=== PATIENT | male | born 1965 | race Hispanic/Latino ===

== ENCOUNTER 2017-05-16 06:37 | Inpatient (IN) | payer MEDICAID, OTHER ==
[2017-05-16 06:37] VITALS: BMI 22.9
--- NOTE | 2017-05-16 06:51 | C.PDOC ---
History Of Present Illness Pt was transferred here from [facility] for psychiatric admission. Pt was medically cleared at the referring facility. Time Seen by Provider: 05/16/17 06:40 Chief Complaint (Nursing): Psychiatric Evaluation History Per: Patient, EMS, Other (Transfer papers) Onset/Duration Of Symptoms: Days Current Symptoms Are (Timing): Still Present Modifying Factor(s): Alcohol Severity: Moderate Associated Symptoms: Depression Additional History Per: Prior Records Past Medical History Reviewed: Historical Data, Nursing Documentation, Vital Signs Vital Signs: Last Vital Signs Temp 98.6 F 05/16/17 06:41 Pulse 85 05/16/17 06:41 Resp 20 05/16/17 06:41 BP 147/87 05/16/17 06:41 Pulse Ox 95 05/16/17 06:41 - Medical History PMH: Anemia, Anxiety, Arthritis, Asthma, Bipolar Disorder, Bronchitis, COPD, Depression, Emphysema, Fractures, Gastritis, Gastrointestinal Ulcer, Hypercholesterolemia, Hyperlipidemia, Pancreatitis, Pneumonia, Pneumothorax, Schizophrenia Other PMH: Alcohol abuse Surgical History: Endoscopy - [facility] Procedures ALCOHOL DETOXIFICATION (10/24/14) APPLICATION OF SPLINT (12/03/06) CLOSURE SKIN & SUBCUTANEOUS NEC (03/08/14) DETOXIFICATION SERVICES FOR SUBSTANCE ABUSE TREATMENT (11/26/15) DRAINAGE OF LEFT KNEE JOINT, PERCUTANEOUS APPROACH (11/13/16) ESOPHAGOGASTRODUODENOSCOPY [EGD] W/CLOSED BIOPSY (08/25/14) EXCISION OF ESOPHAGUS, ENDO, DIAGN (08/01/15) GROUP PSYCHOTHERAPY (11/26/15) IMMOBILIZ/WOUND ATTN NEC (01/03/13) INDIVIDUAL PSYCHOTHERAPY, SUPPORTIVE (11/26/15) INJECT/INFUSE ELECTROLYT (09/21/13) INJECT/INFUSE NEC (08/25/14) INSERT INFUSION DEV IN R INT JUGULAR VEIN, PERC (03/21/17) INSPECTION OF UPPER INTESTINAL TRACT, ENDO (03/21/17) INTRODUCE LOCAL ANESTH IN PERIPH NRV, PLEXI, PERC (06/13/16) INTRODUCTION OF ANTI-INFLAMMATORY INTO JOINTS, PERC APPROACH (11/13/16) INTRODUCTION OF LOCAL ANESTHETIC INTO JOINTS, PERC APPROACH (11/13/16) MEDICATION MANAGEMENT (05/26/16) NEBULIZER THERAPY (03/21/14) OTHER CAST APPLICATION (11/08/99) OTHER ENDOSCOPY OF SM INTEST (08/25/14) OTHER ESOPHAGOSCOPY (04/17/03) PHARYNGOSCOPY (04/17/03) PSYCHIA INTERV/EVAL NEC (11/07/14) PSYCHIAT DRUG THERAP NEC (04/30/14) REMOV INTRALUM ESOPH FB (08/25/14) REPAIR LOWER LIP, EXTERNAL APPROACH (11/13/16) REPOSITION LEFT TIBIA WITH INT FIX, OPEN APPROACH (11/13/16) REPOSITION RIGHT TIBIA WITH INT FIX, PERC APPROACH (06/13/16) TETANUS TOXOID ADMINIST (12/02/03) ULTRASONOGRAPHY OF RIGHT JUGULAR VEINS, GUIDANCE (03/21/17) VENOUS PUNCTURE NEC (03/26/14) Family History: States: Unknown Family Hx - Social History Hx Tobacco Use: Yes Hx Alcohol Use: Yes Hx Substance Use: Yes - Immunization History Hx Tetanus Toxoid Vaccination: No Hx Influenza Vaccination: No Hx Pneumococcal Vaccination: No Review Of Systems Constitutional: Negative for: Fever Cardiovascular: Negative for: Chest Pain Respiratory: Negative for: Shortness of Breath Genitourinary: Negative for: Dysuria Musculoskeletal: Negative for: Neck Pain Neurological: Negative for: Weakness, Seizures Physical Exam - Physical Exam Appears: No Acute Distress Skin: Normal Color, Warm, Dry Head: Atraumatic Eye(s): bilateral: PERRL Neck: Normal ROM, Supple Cardiovascular: Rhythm Regular Respiratory: Normal Breath Sounds, No Accessory Muscle Use Gastrointestinal/Abdominal: Soft, No Tenderness Extremity: Normal ROM Neurological/Psych: Oriented x3, Normal Motor, Other (Pt is mildly tremulous.) ED Course And Treatment O2 Sat by Pulse Oximetry: 95 Pulse Ox Interpretation: Normal Disposition - Disposition Disposition: HOSPITALIZED Disposition Time: 06:52 Condition: STABLE - Clinical Impression Clinical Impression: Alcohol abuse, Depression Decision To Admit - Pt Status Changed To: Hospital Disposition Of: Inpatient - Admit Certification Admit to Inpatient:: After my assessment, the patient will require hospitalization for at least two midnights. This is because of the severity of symptoms shown, intensity of services needed, and/or the medical risk in this patient being treated as an outpatient. - InPatient: Physician Admission Certification: I certify that this patient requires 2 or more midnights of care for the following reason:: Psych. - . Bed Request Type: Psychiatry Admitting Physician: Viji Echavarria Patient Diagnosis: Alcohol abuse, Depression
--- NOTE | 2017-05-16 08:02 | PCM.BM ---
<Queenie Gomez - Last Filed: 05/16/17 07:59> Treatment Plan Problems - Problems identified on initial assessmt Depression Date Initiated: 05/16/17 Time Initiated: 08:02 Assessment reference: NA Status: Active Alcohool Abuse Date Initiated: 05/16/17 Time Initiated: 08:02 Assessment reference: NA Status: Active Treatment assets and liabiliti Patient Assests: cooperative, motivated, ADL independent, negotiates basic needs , good interpersonal skills Patient Liabilities: live alone (homeless), financial problems, substance abuse , medical problems (Hx of pancreatitis, liver, orthopic ,) - Milieu Protocol Maintain good personal hygiene: daily Encourage regular showers, daily Remind patient to perform daily oral care, daily Assist patient to perform ADL's (self) Conduct patient checks and document Observation sheet: Q15 minutes (safety) Maintain personal safety: every shift Educate patient to report safety concerns to staff, every shift Monitor environment for contraband/sharps Medication safety: Monitor for expected outcome, potential side effects: every shift, Assess barriers to learning: every shift, Assess readiness for medication education: every shift <Emmett Kat - Last Filed: 05/17/17 21:25> - Diagnosis (1) Depression Status: Acute Interventions: 05/17/17 21:25 * Assess/adjust medications daily and /or as needed * See patient on an individual basis 7x/week to assess symptoms of depression * Monitor for side effects & effectiveness of medications * (2) Alcohol abuse Status: Acute Interventions: 05/17/17 21:26 * Assess 7x/week regarding severity of withdrawal * Educate regarding risks, benefits, side effects and alternatives of medications * Use Motivational Interviewing for abstinence * Use CBT for relapse prevention * Medication management for withdrawal symptoms * Encourage medication assisted treatment * <Starla Parker - Last Filed: 05/23/17 08:17> Family Contact Family involvement: Famliy/SO not involved Discharge/Continuing Care - Education Needs Education Needs: Patient Medication, Patient Coping Skills - Discharge Discharge Criteria: Tolerates medication w/o severe side effects, No longer exhibiting s/s of withdrawal Discharge to:: Home - Treatment Team Participation Discussed with Family/SO: No Was Patient/Family/SO present at Treatment Team Meeting: Yes
[2017-05-16] MEDS: Multiple Vitamins Tab PO SCH (10:22)
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
[2017-05-17] MEDS: Multiple Vitamins Tab PO SCH (10:08)
--- NOTE | 2017-05-17 10:52 | PCM.PYCHPN ---
Psychiatric Progress Note - Psychiatric Progress Note Patient seen today, length of contact: 15 min Patient Chief Complaint: "I'm feeling shitty" Problems Identified/Issues Discussed: Patient was seen and examined at bedside, chart was reviewed and discussed with staff. The patient reports that he is still not feeling well and experiencing withdrawal symptoms. He reports that he is still shaking and gets chills. The patient reports eating and sleeping well. He reports that his knee pain is slightly better with Motrin but that he may need something stronger. The patient reports that he is becoming increasingly anxious about being here and my surgery at the end of the week. The patient reports that he wants Ativan for his anxiety. The patient reports that his depression is still the same, he feels depressed but has no suicidal ideations at this time because he feels like he is getting help in the hospital. Patient is laying down in bed and appears disheveled and malnourished. He makes good eye contact during the encounter, he responds to questions appropriately and clearly. His thoughts are linear in nature and has no difficulty maintaining concentration and focus. His mood is depressed with a broad and anxious affect. Medication Change: Yes Medical Record Reviewed: Yes Mental Status Examination - Cognitive Function Orientation: Person, Place, Situation, Time Memory: Intact Attention: WNL Concentration: WNL Association: WNL Fund of Knowledge: WNL - Mood Mood: Depressed, Anxious - Affect Affect: Constricted, Depressed - Speech Speech: Appropriate - Language Language: Word Retrieval - Formal Thought Process Formal Thought Process: No Impairment - Suicidal Ideation Suicidal Ideation: No - Homicidal Ideation Homicidal Ideation: No Goal/Treatment Plan - Goal/Treatment Plan Need for Continued Stay: Discharge may exacerbated symptoms, Severe functional impairment Progress Toward Problem(s) and Goals/Treatment Plan: Major Depressive disorder recurrent severe without psychotic features Alcohol Use Disorder severe Alcohol Withdrawal -Alcohol detox with Librium -Atarax for anxiety -Vitamins for nutrition -Trazodone -Celexa -Trazadone for sleep -As needed medications -All risks, benefits and alternatives of the meds discussed, and the pt agreed and understood. -Attend groups and activities -Individual therapy dailt -Supportive therapy and psychoeducation -NE for abstinence -CBT for relapse prevention -Encourage MAT -Refer to rehab or IOP, and self-help groups -Teach healthy lifestyle methods, i.e. diet, exercise, meditation - Smoking Cessation Smoking Cessation Initiated: No Reason for not providing: patient denies smoking
[2017-05-18 05:54] VITALS: O2SAT 97
[2017-05-18] MEDS: Multiple Vitamins Tab PO SCH (09:32)
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
[2017-05-19] MEDS: Multiple Vitamins Tab PO SCH (09:38)
[2017-05-19] MEDS ORDERED: Pneumococcal 23-Valent Vaccine IM ONE (10:00)
--- NOTE | 2017-05-19 12:24 | PCM.PYCHPN ---
Psychiatric Progress Note - Psychiatric Progress Note Patient seen today, length of contact: 15 min Patient Chief Complaint: "I'm getting better" Problems Identified/Issues Discussed: Patient was seen and examined at bedside, chart was reviewed and discussed with staff. The patient reports that he is doing much better. He reports that his mood "is getting there." He reports that he is currently trying to contact his orthopedic surgeon to schedule and appointment for his knee surgery. He reports that after the surgery he will most likely bee in a retirement for rehab for 4 -6 months. The patient appears brighter, he is socializing with patients, he is bathing regularly and appears well groomed. He is up and out of his room. The patient makes good eye contact during the encounter, he responds to questions appropriately and conversationally. His thoughts are linear in nature and has no difficulty maintaining concentration and focus. His mood "better" and he has a broad and neutral affect. Patient is compliant with medications and denies any side effects. Symptoms are improving but need more time to stabilize. Support and psychoeducation given. Medication Change: Yes Medical Record Reviewed: Yes Mental Status Examination - Cognitive Function Orientation: Person, Place, Situation, Time Memory: Intact Attention: WNL Concentration: WNL Association: WNL Fund of Knowledge: WNL - Mood Mood: Neutral - Affect Affect: Broad - Speech Speech: Appropriate - Language Language: Word Retrieval - Formal Thought Process Formal Thought Process: No Impairment - Suicidal Ideation Suicidal Ideation: No - Homicidal Ideation Homicidal Ideation: No Goal/Treatment Plan - Goal/Treatment Plan Need for Continued Stay: Discharge may exacerbated symptoms, Severe functional impairment Progress Toward Problem(s) and Goals/Treatment Plan: Major Depressive disorder recurrent severe without psychotic features Alcohol Use Disorder severe Alcohol Withdrawal -Alcohol detox with Librium -Atarax for anxiety -Vitamins for nutrition -Trazodone -Celexa -Trazadone for sleep -As needed medications -All risks, benefits and alternatives of the meds discussed, and the pt agreed and understood. -Attend groups and activities -Individual therapy dailt -Supportive therapy and psychoeducation -MN for abstinence -CBT for relapse prevention -Encourage MAT -Refer to rehab or IOP, and self-help groups -Teach healthy lifestyle methods, i.e. diet, exercise, meditation Estimated Date of D/C: 05/23/17
[2017-05-20] MEDS: Multiple Vitamins Tab PO SCH (09:29)
--- NOTE | 2017-05-20 17:00 | PCM.PYCHPN ---
Psychiatric Progress Note - Psychiatric Progress Note Patient seen today, length of contact: 15 min Patient Chief Complaint: "I'm getting better" Problems Identified/Issues Discussed: Patient was seen and examined at bedside, chart was reviewed and discussed with staff. As per the staff, he is doing much better. He reports some improvement in his mood, but still reports depressed mood and withdrawal symptoms, including shakes, and anxiety. He is looking forward for his appointment for his knee surgery. The patient appears brighter, he is socializing with patients, he is bathing regularly and appears well groomed. He is up and out of his room. The patient makes good eye contact during the encounter, he responds to questions appropriately and conversationally. His thoughts are linear in nature and has no difficulty maintaining concentration and focus. His mood "better" and he has a broad and neutral affect. Patient is compliant with medications and denies any side effects. Symptoms are improving but need more time to stabilize. Support and psychoeducation given. Medication Change: Yes (Increase neurontin, increase celexa, start seroquel) Medical Record Reviewed: Yes Mental Status Examination - Cognitive Function Orientation: Person, Place, Situation, Time Memory: Intact Attention: WNL Concentration: WNL Association: WNL Fund of Knowledge: Poor - Mood Mood: Depressed, Anxious - Affect Affect: Constricted, Depressed - Speech Speech: Appropriate - Language Language: Word Retrieval - Formal Thought Process Formal Thought Process: No Impairment - Suicidal Ideation Suicidal Ideation: No - Homicidal Ideation Homicidal Ideation: No Goal/Treatment Plan - Goal/Treatment Plan Need for Continued Stay: Discharge may exacerbated symptoms, Severe functional impairment Progress Toward Problem(s) and Goals/Treatment Plan: Major Depressive disorder recurrent severe without psychotic features Alcohol Use Disorder severe Alcohol Withdrawal -Alcohol detox with Librium -Atarax for anxiety -Vitamins for nutrition - Neurontin 300 mg PO TID -Increase Celexa 40 mg -Trazadone 100 mg -Seroquel 100 mg PO QHS -As needed medications -All risks, benefits and alternatives of the meds discussed, and the pt agreed and understood. -Attend groups and activities -Individual therapy dailt -Supportive therapy and psychoeducation -UT for abstinence -CBT for relapse prevention -Encourage MAT -Refer to rehab or IOP, and self-help groups -Teach healthy lifestyle methods, i.e. diet, exercise, meditation Estimated Date of D/C: 05/23/17 - Smoking Cessation Smoking Cessation Initiated: No
[2017-05-21] MEDS: Multiple Vitamins Tab PO SCH (09:14)
--- NOTE | 2017-05-21 18:35 | PCM.PYCHPN ---
Psychiatric Progress Note - Psychiatric Progress Note Patient seen today, length of contact: 15 min Patient Chief Complaint: I'm feeling better. Daniel stay here until and can I get a wheelchair. Problems Identified/Issues Discussed: Patient seen, chart reviewed, case discussed with the staff. Issues related to illness and treatment were discussed with the patient. Reported compliant with treatment with no adverse affects. Tolerating treatment very well. Patient reported feeling better with the treatment. Asking if he can stay here until . Patient was also asking for a wheelchair due to his right knee pain. At the time of evaluation, patient was awake alert oriented 3, had no delusions , no auditory or visual hallucinations, no suicidal ideations or homicidal ideations. Aftercare discussed with the patient. Medical Problems: COPD Diagnostic Results: Reviewed DSM 5 Symptoms Update: Improvement with treatment Medication Change: No Medical Record Reviewed: Yes Mental Status Examination - Cognitive Function Orientation: Person, Place, Situation, Time Memory: Intact Attention: WNL Concentration: WNL Association: WN Fund of Knowledge: [facility] Decription of patient's judgement and insights: Fair - Mood Mood: Anxious (Less than before) - Affect Affect: Other (Appropriate) - Speech Speech: Appropriate - Formal Thought Process Formal Thought Process: No Impairment Psychotic Thoughts and Behaviors: None - Suicidal Ideation Suicidal Ideation: No - Homicidal Ideation Homicidal Ideation: No Goal/Treatment Plan - Goal/Treatment Plan Need for Continued Stay: Remain at risks for inpatient hospitalization, Discharge may exacerbated symptoms, Severe functional impairment Progress Toward Problem(s) and Goals/Treatment Plan: Patient education Supportive therapy Continue treatment as before Aftercare discussed with the patient, patient is scheduled to go to [facility] after discharge from the hospital for follow-up care. Estimated Date of D/C: 05/23/17 - Smoking Cessation Smoking Cessation Initiated: No
[2017-05-22] MEDS: Multiple Vitamins Tab PO SCH (09:08)
--- NOTE | 2017-05-22 17:31 | PCM.PYCHPN ---
Psychiatric Progress Note - Psychiatric Progress Note Patient seen today, length of contact: 15 min Patient Chief Complaint: I'm feeling better. Can you give me something stronger for pain. Problems Identified/Issues Discussed: Patient seen, chart reviewed, case discussed with the staff. Issues related to illness and treatment were discussed with the patient. Reported compliant with treatment with no adverse affects. Tolerating treatment very well. Patient reported feeling better with the treatment. Offered naproxen for pain, patient agreed. At the time of evaluation, patient was awake alert oriented 3, had no delusions , no auditory or visual hallucinations, no suicidal ideations or homicidal ideations. Aftercare discussed with the patient. Medical Problems: COPD Diagnostic Results: Reviewed DSM 5 Symptoms Update: Improving with treatment Medication Change: Yes (Ibuprofen changed with naproxen) Medical Record Reviewed: Yes Mental Status Examination - Cognitive Function Orientation: Person, Place, Situation, Time Memory: Intact Attention: WNL Concentration: WNL Association: WNL Fund of Knowledge: WN Decription of patient's judgement and insights: Fair - Mood Mood: Neutral - Affect Affect: Other (Appropriate) - Speech Speech: Appropriate - Language Language: Word Retrieval - Formal Thought Process Formal Thought Process: No Impairment Psychotic Thoughts and Behaviors: None - Suicidal Ideation Suicidal Ideation: No - Homicidal Ideation Homicidal Ideation: No Goal/Treatment Plan - Goal/Treatment Plan Need for Continued Stay: Remain at risks for inpatient hospitalization, Discharge may exacerbated symptoms, Severe functional impairment Progress Toward Problem(s) and Goals/Treatment Plan: Patient education Supportive therapy Will discontinue ibuprofen. We'll start naproxen every 12 when necessary Continue rest of the treatment as before Aftercare discussed with the patient, patient is scheduled to go to [facility] after discharge from the hospital for follow-up care. Estimated Date of D/C: 05/23/17 - Smoking Cessation Smoking Cessation Initiated: No
[2017-05-22] MEDS: Naproxen 550 mg Tab PO PRN (18:01)
[2017-05-23] MEDS ORDERED: Propofol 10 mg/ml Inj (20 ML) ONE ×2 (07:27→08:43)
[2017-05-23] MEDS ORDERED: Midazolam 2 MG/2 ML VIAL ONE (07:27)
[2017-05-23] MEDS ORDERED: ePHEDrine 50 mg/ml Inj ONE (07:28)
[2017-05-23] MEDS ORDERED: Phenylephrine 10 mg/ml Inj ONE (07:28)
[2017-05-23 08:14] VITALS: BP 117/75; PULSE 78; RESP 20; TEMP 97.3
[2017-05-23] MEDS: Multiple Vitamins Tab PO SCH (09:47)
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
[2017-05-23] MEDS: Naproxen 550 mg Tab PO PRN (11:07)
== END 2017-05-23 12:45 | disposition home or self-care (01) | DRG 430 ==
LOC: C.ER 06:37 → C.5E 06:53
PROVIDERS: ADMIT Psychiatry & Neurology Psychiatry; ATTEND Psychiatry & Neurology Psychiatry
PROC: HZ2ZZZZ Detoxification Services for Substance Abuse Treatment (ICD-10-PCS; principal; 2017-05-16)
PROC: HZ52ZZZ Individual Psychotherapy for Substance Abuse Treatment, Cognitive-Behavioral (ICD-10-PCS; 2017-05-16)
PROC: HZ59ZZZ Individual Psychotherapy for Substance Abuse Treatment, Supportive (ICD-10-PCS; 2017-05-16)
PROC: HZ56ZZZ Individual Psychotherapy for Substance Abuse Treatment, Psychoeducation (ICD-10-PCS; 2017-05-16)
DX: F33.2 Major depressive disorder, recurrent severe without psychotic features (principal); R45.851 Suicidal ideations; F20.9 Schizophrenia, unspecified; F10.239 Alcohol dependence with withdrawal, unspecified; E78.00 Pure hypercholesterolemia, unspecified; F41.9 Anxiety disorder, unspecified; M25.561 Pain in right knee; M25.562 Pain in left knee; G89.29 Other chronic pain; Z79.899 Other long term (current) drug therapy; Z81.1 Family history of alcohol abuse and dependence; Z87.891 Personal history of nicotine dependence

== ENCOUNTER 2017-06-10 22:52 | Emergency (ER) | payer MEDICAID ==
[2017-06-10 22:52] VITALS: BMI 22.9
--- NOTE | 2017-06-11 01:23 | C.PDOC ---
History Of Present Illness 51 year old male presents to the ER via EMS for acute ETOH intoxication. Patient was seen at [facility] last night for the same complaint and is seen regularly for ETOH intoxication. Denies physical complaints at this time. Time Seen by Provider: 06/10/17 23:16 Chief Complaint (Nursing): Substance Abuse History Per: Patient History/Exam Limitations: no limitations Onset/Duration Of Symptoms: Hrs Current Symptoms Are (Timing): Still Present Suicide/Self Injury Attempted (Context): None Modifying Factor(s): Alcohol Associated Symptoms: denies: Depression, Suicidal Thoughts Involuntary Hold By: None Recent travel outside of the [place]: No Past Medical History Reviewed: Historical Data, Nursing Documentation, Vital Signs Vital Signs: Last Vital Signs Temp 98.0 F 06/11/17 05:01 Pulse 84 06/11/17 05:01 Resp 22 06/11/17 05:01 BP 97/54 L 06/11/17 05:01 Pulse Ox 95 06/11/17 05:01 - Medical History PMH: Anemia, Anxiety, Arthritis, Asthma, Bipolar Disorder, Bronchitis, COPD, Depression, Emphysema, Fractures, Gastritis, Gastrointestinal Ulcer, Hypercholesterolemia, Hyperlipidemia, Pancreatitis, Pneumonia, Pneumothorax, Schizophrenia Surgical History: Endoscopy - [facility] Procedures ALCOHOL DETOXIFICATION (10/24/14) APPLICATION OF SPLINT (12/03/06) CLOSURE SKIN & SUBCUTANEOUS NEC (03/08/14) DETOXIFICATION SERVICES FOR SUBSTANCE ABUSE TREATMENT (05/16/17) DRAINAGE OF LEFT KNEE JOINT, PERCUTANEOUS APPROACH (11/13/16) ESOPHAGOGASTRODUODENOSCOPY [EGD] W/CLOSED BIOPSY (08/25/14) EXCISION OF ESOPHAGUS, ENDO, DIAGN (08/01/15) GROUP PSYCHOTHERAPY (11/26/15) IMMOBILIZ/WOUND ATTN NEC (01/03/13) INDIV PSYCHOTHERAPY FOR SUBSTANCE ABUSE TREATMENT, SUPPORT (05/16/17) INDIV PSYCHOTHERAPY FOR SUBSTANCE ABUSE, COGNITIV BEHAVIORAL (05/16/17) INDIV PSYCHOTHERAPY FOR SUBSTANCE ABUSE, PSYCHOEDUCATION (05/16/17) INDIVIDUAL PSYCHOTHERAPY, SUPPORTIVE (11/26/15) INJECT/INFUSE ELECTROLYT (09/21/13) INJECT/INFUSE NEC (08/25/14) INSERT INFUSION DEV IN R INT JUGULAR VEIN, PERC (03/21/17) INSPECTION OF UPPER INTESTINAL TRACT, ENDO (03/21/17) INTRODUCE LOCAL ANESTH IN PERIPH NRV, PLEXI, PERC (06/13/16) INTRODUCTION OF ANTI-INFLAMMATORY INTO JOINTS, PERC APPROACH (11/13/16) INTRODUCTION OF LOCAL ANESTHETIC INTO JOINTS, PERC APPROACH (11/13/16) MEDICATION MANAGEMENT (05/26/16) NEBULIZER THERAPY (03/21/14) OTHER CAST APPLICATION (11/08/99) OTHER ENDOSCOPY OF SM INTEST (08/25/14) OTHER ESOPHAGOSCOPY (04/17/03) PHARYNGOSCOPY (04/17/03) PSYCHIA INTERV/EVAL NEC (11/07/14) PSYCHIAT DRUG THERAP NEC (04/30/14) REMOV INTRALUM ESOPH FB (08/25/14) REPAIR LOWER LIP, EXTERNAL APPROACH (11/13/16) REPOSITION LEFT TIBIA WITH INT FIX, OPEN APPROACH (11/13/16) REPOSITION RIGHT TIBIA WITH INT FIX, PERC APPROACH (06/13/16) TETANUS TOXOID ADMINIST (12/02/03) ULTRASONOGRAPHY OF RIGHT JUGULAR VEINS, GUIDANCE (03/21/17) VENOUS PUNCTURE NEC (03/26/14) Family History: States: Unknown Family Hx - Social History Hx Tobacco Use: Yes Hx Alcohol Use: Yes Hx Substance Use: Yes - Immunization History Hx Tetanus Toxoid Vaccination: No Hx Influenza Vaccination: No Hx Pneumococcal Vaccination: No Review Of Systems Constitutional: Negative for: Fever, Chills Cardiovascular: Negative for: Chest Pain, Palpitations Respiratory: Negative for: Shortness of Breath Gastrointestinal: Negative for: Nausea, Vomiting Psych: Negative for: Depression, Suicidal ideation Physical Exam - Physical Exam Appears: Non-toxic, No Acute Distress, Other (ETOH on breath) Skin: Normal Color, Warm, Dry Head: Atraumatic, Normacephalic Eye(s): bilateral: Normal Inspection Oral Mucosa: Moist Chest: Symmetrical, No Tenderness Cardiovascular: Rhythm Regular Respiratory: Normal Breath Sounds, No Rales, No Rhonchi, No Wheezing Gastrointestinal/Abdominal: Soft, No Tenderness Neurological/Psych: Oriented x3, Normal Speech ED Course And Treatment O2 Sat by Pulse Oximetry: 98 Reevaluation Time: 05:51 Reassessment Condition: Improved (no detox available, info given for availability) Disposition Doctor Will See Patient In The: Office Counseled Patient/Family Regarding: Studies Performed, Diagnosis - Disposition Disposition: HOME/ ROUTINE Disposition Time: 05:52 Condition: GOOD Forms: [employer] (Yakut) - Clinical Impression Clinical Impression: Alcohol abuse - Scribe Statement The provider has reviewed the documentation as recorded by the Scribleidy Johnson All medical record entries made by the Scribe were at my direction and personally dictated by me. I have reviewed the chart and agree that the record accurately reflects my personal performance of the history, physical exam, medical decision making, and the department course for this patient. I have also personally directed, reviewed, and agree with the discharge instructions and disposition.
[2017-06-11 05:52] VITALS: O2SAT 98
[2017-06-11 06:21] VITALS: BP 100/60; PULSE 70; RESP 20; TEMP 98.5
== END 2017-06-11 06:21 | disposition home or self-care (01) ==
LOC: C.ER 22:52
DX: F10.10 Alcohol abuse, uncomplicated (principal); Y90.9 Presence of alcohol in blood, level not specified

== ENCOUNTER 2017-12-16 17:51 | Inpatient (IN) | payer MEDICAID ==
[2017-12-16 17:52] VITALS: BMI 24.3
--- NOTE | 2017-12-16 18:29 | C.PDOC ---
History Of Present Illness 51 y/o M p/w request for detox from alcohol. Patient states he becomes tremulous easily. Transferred from [facility], accepted prior to transfer after medically clear. Time Seen by Provider: 12/16/17 18:24 Chief Complaint (Nursing): Psychiatric Evaluation Past Medical History Vital Signs: Last Vital Signs Temp 99 F 12/16/17 17:53 Pulse 72 12/16/17 17:53 Resp 18 12/16/17 17:53 BP 147/76 12/16/17 17:53 Pulse Ox 97 12/16/17 17:53 - Medical History PMH: Anemia, Anxiety, Arthritis, Asthma, Bipolar Disorder, Bronchitis, COPD, Depression, Emphysema, Fractures (R LEG, L LEG, R HAND, NOSE), Gastritis, Gastrointestinal Ulcer, Hypercholesterolemia, Hyperlipidemia, Pancreatitis, Pneumonia, Pneumothorax, Schizophrenia Denies: Diabetes, Hepatitis, HIV, HTN, Chronic Kidney Disease, Seizures, Sexually Transmitted Disease Surgical History: Endoscopy - [facility] Procedures ALCOHOL DETOXIFICATION (10/24/14) APPLICATION OF SPLINT (12/03/06) CLOSURE SKIN & SUBCUTANEOUS NEC (03/08/14) DETOXIFICATION SERVICES FOR SUBSTANCE ABUSE TREATMENT (05/16/17) DRAINAGE OF LEFT KNEE JOINT, PERCUTANEOUS APPROACH (11/13/16) ESOPHAGOGASTRODUODENOSCOPY [EGD] W/CLOSED BIOPSY (08/25/14) EXCISION OF ESOPHAGUS, ENDO, DIAGN (08/01/15) GROUP PSYCHOTHERAPY (11/26/15) IMMOBILIZ/WOUND ATTN NEC (01/03/13) INDIV PSYCHOTHERAPY FOR SUBSTANCE ABUSE TREATMENT, SUPPORT (05/16/17) INDIV PSYCHOTHERAPY FOR SUBSTANCE ABUSE, COGNITIV BEHAVIORAL (05/16/17) INDIV PSYCHOTHERAPY FOR SUBSTANCE ABUSE, PSYCHOEDUCATION (05/16/17) INDIVIDUAL PSYCHOTHERAPY, SUPPORTIVE (11/26/15) INJECT/INFUSE ELECTROLYT (09/21/13) INJECT/INFUSE NEC (08/25/14) INSERT INFUSION DEV IN R INT JUGULAR VEIN, PERC (03/21/17) INSPECTION OF UPPER INTESTINAL TRACT, ENDO (03/21/17) INTRODUCE LOCAL ANESTH IN PERIPH NRV, PLEXI, PERC (06/13/16) INTRODUCTION OF ANTI-INFLAMMATORY INTO JOINTS, PERC APPROACH (11/13/16) INTRODUCTION OF LOCAL ANESTHETIC INTO JOINTS, PERC APPROACH (11/13/16) MEDICATION MANAGEMENT (09/16/17) NEBULIZER THERAPY (03/21/14) OTHER CAST APPLICATION (11/08/99) OTHER ENDOSCOPY OF SM INTEST (08/25/14) OTHER ESOPHAGOSCOPY (04/17/03) PHARYNGOSCOPY (04/17/03) PSYCHIA INTERV/EVAL NEC (11/07/14) PSYCHIAT DRUG THERAP NEC (04/30/14) REMOV INTRALUM ESOPH FB (08/25/14) REPAIR LOWER LIP, EXTERNAL APPROACH (11/13/16) REPOSITION LEFT TIBIA WITH INT FIX, OPEN APPROACH (11/13/16) REPOSITION RIGHT TIBIA WITH INT FIX, PERC APPROACH (06/13/16) TETANUS TOXOID ADMINIST (12/02/03) ULTRASONOGRAPHY OF RIGHT JUGULAR VEINS, GUIDANCE (03/21/17) VENOUS PUNCTURE NEC (03/26/14) Family History: States: Unknown Family Hx - Social History Hx Tobacco Use: Yes Hx Alcohol Use: Yes Hx Substance Use: Yes - Immunization History Hx Tetanus Toxoid Vaccination: Yes Hx Influenza Vaccination: No Hx Pneumococcal Vaccination: No Review Of Systems Except As Marked, All Systems Reviewed And Found Negative. Constitutional: Negative for: Fever Cardiovascular: Negative for: Chest Pain Physical Exam - Physical Exam Additional Physical Exam Comments: Gen: NAD Head: NC Eyes: No scleral icterus ENT: MMM Neck: Supple Chest: No tenderness CV: Regular rate Lungs: CTA b/l Abd: Soft, NT Back: No CVA tenderness Extremities: Mild tremor with hands extended Skin: No rash Neuro: Alert, no focal deficit ED Course And Treatment O2 Sat by Pulse Oximetry: 97 Disposition - Disposition Disposition: HOSPITALIZED Disposition Time: 18:29 Condition: STABLE - Clinical Impression Clinical Impression: Alcohol use disorder, severe, dependence
--- NOTE | 2017-12-16 19:32 | PCM.BM ---
<Rafael Rousseau - Last Filed: 12/16/17 19:30> Treatment Plan Problems - Problems identified on initial assessmt potential for alcohol withdrawal Date Initiated: 12/16/17 Time Initiated: 19:31 Status: Active Treatment assets and liabiliti Patient Assests: adapts well, cooperative, motivated, ADL independent, negotiates basic needs, good interpersonal skills Patient Liabilities: substance abuse, medical problems - Milieu Protocol Maintain good personal hygiene: daily Encourage regular showers, daily Remind patient to perform daily oral care, daily Assist patient to perform ADL's Conduct patient checks and document Observation sheet: Q15 minutes Maintain personal safety: every shift Educate patient to report safety concerns to staff, every shift Monitor environment for contraband/sharps Medication safety: Monitor for expected outcome, potential side effects: every shift, Assess barriers to learning: every shift, Assess readiness for medication education: every shift <Ann Carvajal - Last Filed: 12/21/17 12:20> - Diagnosis (1) Alcohol use disorder Status: Chronic Interventions: 12/19/17 12:19 * Assess 7x/week regarding severity of withdrawal * Educate regarding risks, benefits, side effects and alternatives of medications * Use Motivational Interviewing for abstinence * Use CBT for relapse prevention * Medication management for withdrawal symptoms * Encourage medication assisted treatment *
[2017-12-17] MEDS: Multiple Vitamins Tab PO SCH (09:40)
--- NOTE | 2017-12-17 09:46 | PCM.PSYCH ---
Initial Psychiatric Evaluation - Initial Psychiatric Evaluation Type of Admission: Voluntary Legal Status: Capacity Chief Complaint (in patient's own words): I came in to get help.' History of Present Illness and Precipitating Events: This is a 51 years old CM, S, currently unemployed, and homeless, came to the [facility] to get help in alcohol detox. Pt reports history of multiple inpatient psychiatric hospitalizations due to depressed mood, last discharged from [facility], in September 2017. However, he denies any history of follow up with any psychiatrist. As per the patient soon, after he came out, he relapsed on alcohol and state drinking 1-4 pints of liquor daily. His last abuse was 2 day ago. Patient reports depressed and irritability but denies any feelings of hopelessness and helplessness. He denies any poor sleep and poor appetite. He denies any feelings of hopelessness and helplessness. He denies any suicidal ideation or any homicidal ideation. He denies any racing of thoughts of any manic symptoms. He denies any auditory or visual hallucinations or any psychotic symptoms. Patient reports withdrawal symptoms from drinking including nausea, anxiety, headaches and sweating. Pt denies any history of abusing any other substances. PMH: None reported Current Medications: Active Medications Generic Name Dose Route Start Last Admin Trade Name Freq PRN Reason Stop Dose Admin Chlordiazepoxide 25 mg 12/17/17 00:00 12/17/17 06:16 Librium PO 12/20/17 23:59 25 mg Q6 YAN Administration Taper Chlordiazepoxide 25 mg 12/16/17 20:07 12/17/17 09:41 Librium PO 25 mg Q4H PRN Administration Alcohol Withdrawal Clonidine HCl 0.1 mg 12/16/17 20:07 12/16/17 21:29 Catapres PO 0.1 mg Q4H PRN Administration Symptoms of alcohol withdrawl Fluoxetine HCl 40 mg 12/17/17 10:00 12/17/17 09:40 Prozac PO 40 mg DAILY YAN Administration Folic Acid 1 mg 12/17/17 10:00 12/17/17 09:40 Folic Acid PO 1 mg DAILY YAN Administration Gabapentin 300 mg 12/17/17 10:00 12/17/17 09:41 Neurontin PO 300 mg BID YAN Administration Hydroxyzine HCl 50 mg 12/16/17 20:13 09/21/18 21:29 Atarax PO 12/22/17 20:14 50 mg QID PRN Administration Anxiety Ibuprofen 600 mg 12/16/17 20:16 12/16/17 21:28 Motrin Tab PO 600 mg TID PRN Administration Pain, moderate (4-7) Multivitamins 1 tab 12/17/17 10:00 12/17/17 09:40 Hexavitamin PO 1 tab DAILY YAN Administration Thiamine HCl 100 mg 12/17/17 10:00 12/17/17 09:40 Vitamin B1 Tab PO 100 mg DAILY YAN Administration Trazodone HCl 50 mg 12/16/17 20:07 12/16/17 21:29 Desyrel PO 50 mg HS PRN Administration Insomnia Past Psychiatric History - Past Psychiatric History Previous Treatment History: Inpatient Pertinent Medical Hx (Current Medical&Sleep Prob, Allergies): Allergies Allergy/AdvReac Type Severity Reaction Status Date / Time lidocaine Allergy Mild RASH Verified 12/15/17 19:21 phenylpropanolamine HCl AdvReac Intermediate SHORTNESS Verified 12/15/17 19:21 [From Coricidin] OF BREATH Fluoxetine HCl [Prozac] 40 mg PO DAILY #14 capsule 11/04/17 Folic Acid 1 mg PO DAILY #14 tab 11/04/17 Gabapentin [Neurontin] 300 mg PO TID #45 cap 11/04/17 Multimineral/Multivitamin [Therapeutic-M Tab] 1 tab PO DAILY #14 tab 11/04/17 traZODone [Desyrel] 50 mg PO HS #14 tab 11/04/17 Thiamine [Vitamin B1 Tab] 50 mg PO DAILY #30 tab 12/08/17 Review of Systems - Review of Systems All systems: reviewed and no additional remarkable complaints except - Psychiatric Psychiatric: Anxiety, Irritability. absent: Suicidal Ideation Mental Status Examination - Personal Presentation Personal Presentation: Looks stated age - Affect Affect: Constricted - Motor Activity Motor Activity: Calm - Reliability in Providing Information Reliability in Providing Information: Fair - Speech Speech: Organized - Mood Mood: Anxious - Formal Thought Process Formal Thought Process: No Impairment - Obsessions/Compulsions Obsessions: No Compulsions: No - Cognitive Functions Orientation: Person, Place, Situation, Time Sensorium: Alert Attention/Concentration: Attentive Abstract Thinking: [place] Estimate of Intelligence: Below average Judgement: Imparied, as evidence by: Poor judgement, Intact, as evidence by: Insight regarding need for hospitalization - Risk Risk: Withdrawal, Diminished functioning - Limitations Limitations: Living alone DSM 5 DX - DSM 5 DSM 5 Diagnosis: Alcohol use disorder severe Alcohol withdrawal uncomplicated Bipolar disorder depressed severe - Recommended/Plan of Treatment Treatment Recommendations and Plan of Treatment: Alcohol use disorder severe CBT Psychoeducation Supportive therapy, individual therapy Use [place] for abstinence Alcohol withdrawal uncomplicated CBT Psychoeducation Supportive therapy, individual therapy Librium when necessary Start Librium taper Start folic acid/thiamine/multivit Bipolar disorder depressed severe CBT Psychoeducation Supportive therapy, individual therapy Prozac Gabapentin - Smoking Cessation Smoking Cessation Initiated: No
[2017-12-18] MEDS ORDERED: Benzocaine/Menthol (Cepacol) Lozenge PO PRN (00:25)
[2017-12-18] MEDS ORDERED: Aluminum Hydroxide/Magnesium Hydroxide Susp (30 mL) PO PRN (00:25)
[2017-12-18] MEDS: Multiple Vitamins Tab PO SCH (10:31)
--- NOTE | 2017-12-18 23:33 | PCM.PYCHPN ---
Psychiatric Progress Note - Psychiatric Progress Note Patient seen today, length of contact: 16 min Patient Chief Complaint: "not well" Problems Identified/Issues Discussed: The pt is seen, chart reviewed, case discussed with staff. The pt is compliant with medications and reports no side-effects. Symptoms are improving but needs more time to stabilize. After care discussed, support and psychoeducation given. Medication Change: Yes Medical Record Reviewed: Yes Mental Status Examination - Cognitive Function Orientation: Person, Place, Situation, Time Memory: Impaired Attention: WNL Concentration: Poor Association: WNL Fund of Knowledge: WNL - Mood Mood: Anxious - Affect Affect: Constricted - Speech Speech: Appropriate - Formal Thought Process Formal Thought Process: No Impairment - Suicidal Ideation Suicidal Ideation: No - Homicidal Ideation Homicidal Ideation: No Goal/Treatment Plan - Goal/Treatment Plan Need for Continued Stay: Discharge may exacerbated symptoms, Severe functional impairment Progress Toward Problem(s) and Goals/Treatment Plan: Continue medications Support and psychoeducation daily Attend groups and activities daily After care planning by YAYA
[2017-12-19] MEDS: Multiple Vitamins Tab PO SCH (09:51)
--- NOTE | 2017-12-19 14:07 | PCM.PYCHPN ---
Psychiatric Progress Note - Psychiatric Progress Note Patient seen today, length of contact: 16 min Patient Chief Complaint: "I'm better I guess" Problems Identified/Issues Discussed: The pt is seen, chart reviewed, case discussed with staff. Support given, CBT and OK used briefly No new symptoms reported, improving slowly and needs more time No SEs from medications, risks discussed. After care discussed Medication Change: Yes (detox changes daily) Medical Record Reviewed: Yes Mental Status Examination - Cognitive Function Orientation: Person, Place, Situation, Time Memory: Impaired Attention: WNL Concentration: Poor Association: WNL Fund of Knowledge: WNL - Mood Mood: Anxious - Affect Affect: Constricted - Speech Speech: Appropriate - Formal Thought Process Formal Thought Process: No Impairment - Suicidal Ideation Suicidal Ideation: No - Homicidal Ideation Homicidal Ideation: No Goal/Treatment Plan - Goal/Treatment Plan Need for Continued Stay: Discharge may exacerbated symptoms, Severe functional impairment Progress Toward Problem(s) and Goals/Treatment Plan: Continue medications Support and psychoeducation daily Attend groups and activities daily After care planning by counselors
[2017-12-19] MEDS: Magnesium Hydroxide Susp 30 ml UD PO PRN (22:29)
[2017-12-20] MEDS: Multiple Vitamins Tab PO SCH (10:26)
--- NOTE | 2017-12-20 11:54 | PCM.PYCHPN ---
Psychiatric Progress Note - Psychiatric Progress Note Patient seen today, length of contact: 16 min Patient Chief Complaint: "I am getting better" Problems Identified/Issues Discussed: The patient is seen, chart reviewed, case discussed with staff. Patient states that he is getting better. Symptoms are improving but needs more time to stabilize. He has gross tremor but denies any discomfort. Pt attends groups and activities. He is cooperative and talkative. Support given, psycho-education provided. Medication Change: Yes Medical Record Reviewed: Yes Mental Status Examination - Cognitive Function Orientation: Person, Place, Situation, Time Memory: Impaired Attention: WNL Concentration: Poor Association: WNL Fund of Knowledge: WNL - Mood Mood: Anxious - Affect Affect: Constricted - Speech Speech: Appropriate - Formal Thought Process Formal Thought Process: No Impairment - Suicidal Ideation Suicidal Ideation: No - Homicidal Ideation Homicidal Ideation: No Goal/Treatment Plan - Goal/Treatment Plan Need for Continued Stay: Discharge may exacerbated symptoms, Severe functional impairment Progress Toward Problem(s) and Goals/Treatment Plan: Alcohol use disorder severe CBT Psychoeducation Supportive therapy, individual therapy Use [place] for abstinence Alcohol withdrawal uncomplicated CBT Psychoeducation Supportive therapy, individual therapy Librium when necessary Start Librium taper Start folic acid/thiamine/multivit Bipolar disorder depressed severe CBT Psychoeducation Supportive therapy, individual therapy Prozac Gabapentin
[2017-12-20 12:14] VITALS: RESP 18
[2017-12-20] MEDS: Magnesium Hydroxide Susp 30 ml UD PO PRN (14:36)
[2017-12-21] MEDS: Multiple Vitamins Tab PO SCH (09:22)
--- NOTE | 2017-12-21 12:19 | PCM.PYCHPN ---
Psychiatric Progress Note - Psychiatric Progress Note Patient seen today, length of contact: 16 min Patient Chief Complaint: "I'm anxious" Problems Identified/Issues Discussed: The pt is seen, chart reviewed, case discussed with staff. The pt is compliant with medications and reports no side-effects. Symptoms are improving but needs more time to stabilize. Still anxious and has some wdw sxs, high risk for relapse if leaves today Besides he is accepted for [facility] rehab for tomorrow, not today, which is another risk Pt attends groups and activities. Support given, psycho-education provided. After care discussed. Medication Change: Yes (detox extended) Medical Record Reviewed: Yes Mental Status Examination - Cognitive Function Orientation: Person, Place, Situation, Time Memory: Impaired Attention: WNL Concentration: Poor Association: WNL Fund of Knowledge: WNL - Mood Mood: Anxious - Affect Affect: Constricted - Speech Speech: Appropriate - Formal Thought Process Formal Thought Process: No Impairment - Suicidal Ideation Suicidal Ideation: No - Homicidal Ideation Homicidal Ideation: No Goal/Treatment Plan - Goal/Treatment Plan Need for Continued Stay: Discharge may exacerbated symptoms, Severe functional impairment Progress Toward Problem(s) and Goals/Treatment Plan: Continue medications Support and psychoeducation daily Attend groups and activities daily After care: [facility] in [place]
--- NOTE | 2017-12-22 08:44 | PCM.PYCHDC ---
Mental Status Examination - Mental Status Examination Orientation: Person Discharge Summary - Discharge Note Consultations:: List each consultation separately and include: 1. Reason for request. 2. Findings. 3. Follow-up Summary of Hospital Course include:: 1. Description of specific treatment plan utilized for patients during their course of treatmen. 2. Summarize the time- course for resolution of acute symptoms and/or regressed behaviors. 3. Describe issues identified and worked on during hospitalization. 4. Describe medication utilized. 5. Describe medical problems identified and treated. 6. Reassessment of suicide risk Summary of Hospital Course: He will go to [place] [facility]. - Diagnosis (1) Alcohol use disorder Current Visit: No Status: Chronic Priority: Medium - Final Diagnosis (DSM 5) Condition upon Discharge: STABLE Disposition: HOME/ ROUTINE Follow-up Treatment Plan: Continue medications Support and psychoeducation daily Attend groups and activities daily After care: [facility] in [place] Prescriptions/Medication Reconciliation: FLUoxetine [Prozac] 40 mg PO DAILY #30 cap Gabapentin [Neurontin] 300 mg PO BID #60 cap traZODone [Desyrel] 50 mg PO HS PRN #30 tab PRN Reason: Insomnia
[2017-12-22] MEDS: Multiple Vitamins Tab PO SCH (09:27)
[2017-12-22 09:39] VITALS: BP 100/67; PULSE 84; TEMP 97.7; O2SAT 98
== END 2017-12-22 09:45 | disposition home or self-care (01) | DRG 750 ==
LOC: C.ER 17:51 → C.7D 18:25
PROVIDERS: ADMIT Psychiatry & Neurology Psychiatry; ATTEND Psychiatry & Neurology Psychiatry
PROC: GZHZZZZ Group Psychotherapy (ICD-10-PCS; principal; 2017-12-16)
PROC: GZ56ZZZ Individual Psychotherapy, Supportive (ICD-10-PCS; 2017-12-16)
DX: F10.230 Alcohol dependence with withdrawal, uncomplicated (principal); J43.9 Emphysema, unspecified; J44.9 Chronic obstructive pulmonary disease, unspecified; Y90.9 Presence of alcohol in blood, level not specified; E78.5 Hyperlipidemia, unspecified; F41.9 Anxiety disorder, unspecified; Z59.0 Homelessness; Z87.891 Personal history of nicotine dependence; F31.4 Bipolar disorder, current episode depressed, severe, without psychotic features